=== PATIENT | female | born 1985 | race Caucasian/White ===

== ENCOUNTER 2017-09-20 06:37 | Inpatient (IN) | payer OTHER ==
[2017-09-20] MEDS ORDERED: TERBUTALINE SULFATE 1 MG/ML VIAL IV PRN (07:14)
[2017-09-20] MEDS ORDERED: MISOPROSTOL 200 MCG TAB PR PRN (07:14)
[2017-09-20] MEDS ORDERED: EPSOM SALT 454 GM TP PRN (07:14)
[2017-09-20] MEDS ORDERED: OLIVE OIL 118 ML BTL MISC PRN (07:14)
[2017-09-20] MEDS ORDERED: OXYTOCIN 20 UNIT in LR 1,000 ML IV PRN (07:14)
[2017-09-20] MEDS ORDERED: LR 1,000 ML IV PRN (07:14)
[2017-09-20] MEDS ORDERED: PHENYLEPHRINE HCL 100 MCG/ML SYR ONE (07:40)
[2017-09-20] MEDS ORDERED: BUPIVACAINE 0.25% 30 ML SDV ONE (07:40)
[2017-09-20] MEDS ORDERED: fentaNYL 100 MCG/2 ML INJ ONE (07:41)
[2017-09-20 07:50] LABS: PLATELET COUNT 234 10^3/uL (150-400)
--- NOTE | 2017-09-20 08:22 | PREANESOB ---
Obstetric Pre-Anesthesia Info - General Info Proposed Procedure: JESSENIA - Info Status: Full Term FHR Pattern: Reassuring - Labor Status Labor Epidural: Yes Anesthesia Allergies/Adverse Reactions: Allergy/AdvReac Type Severity Reaction Status Date / Time shellfish derived Allergy Hives Verified 09/20/17 07:13 she Allergy Uncoded 09/20/17 07:13 Home Medications: Medication Instructions Recorded Docusate Sodium [Colace 100 MG (*)] 100 mg PO BID PRN #0 cap 08/25/14 Hydrocodone/APAP 5/325 [[place] 1 - 2 tab PO Q4 PRN #10 tab 08/25/14 5/325 (*)] Ibuprofen [Motrin (*)] 600 mg PO Q6 PRN #30 tab 08/25/14 Visit Medications: Generic Name Dose Route Start Last Admin Trade Name Freq PRN Reason Stop Dose Admin Lactated Ringer's 1,000 mls @ 0 mls/hr 09/20/17 07:14 Lr IV 09/21/17 07:13 PRN PRN SEE PROTOCOL CONDITIONS Protocol Per Protocol Oxytocin 20 unit/ Lactated 1,002 mls @ 150 mls/hr 09/20/17 07:14 Ringer's IV PRN PRN Post- bleeding Ibuprofen 600 mg 09/20/17 07:14 Motrin PO 03/19/18 07:13 Q6HRS PRN post , inflammation Magnesium Sulfate 454 gm 09/20/17 07:14 Epsom Salt TP 03/19/18 07:13 Q1H PRN perineal discomfort Misoprostol 800 - 1,000 mcg 09/20/17 07:14 Cytotec [place] ONCE PRN Vaginal Atony/Bleeding [place] Oil 118 ml 09/20/17 07:14 Sweet Oil MISC 03/19/18 07:13 ONCE PRN perineal massage Terbutaline Sulfate 0.25 mg 09/20/17 07:14 Brethine IV 03/19/18 07:13 ONCE PRN Tachysystole Discontinued Medications Generic Name Dose Route Start Last Admin Trade Name Freq PRN Reason Stop Dose Admin Bupivacaine HCl Confirm 09/20/17 07:40 Sensorcaine 0.25% Sdv Administered 09/20/17 07:41 Dose 30 ml .ROUTE .STK-MED ONE Fentanyl Confirm 09/20/17 07:41 Sublimaze Administered 09/20/17 07:42 Dose 100 mcg .ROUTE .STK-MED ONE Phenylephrine HCl Confirm 09/20/17 07:40 Neosynephrine Administered 09/20/17 07:41 Dose 1,000 mcg .ROUTE .STK-MED ONE - Vital Signs Blood Pressure: 100/60 Heart Rate: 74 Height/Weight (Nursing): Height 165.1 cm Weight 90.265 kg - Focused Exam Neck exam: FROM Mallampati Score: Class 2 Mouth exam: normal dental/mouth exam Pulmonary: no respiratory distress Cardiovascular: regular rate and rhythym Labs: 09/20/17 07:40 - Plan Anesthetic Plan: JESSENIA Consent Signed and on Chart: Yes
--- NOTE | 2017-09-20 08:22 | POSTANESTH ---
Post Anesthetic Evaluation Cardiovascular Status: Normal, Stable Respiratory Status: Normal, Stable Level of Consciousness/Mental Status: Can Participate in Eval Pain Control: Adequate, Prn Tx Ordered Nausea/Vomiting Control: Adequate, Prn Tx Ordered Complications Possibly Related to Anesthesia: None Noted
[2017-09-20] MEDS ORDERED: NARCOTIC DRIP BAG-TOTAL ALL TYPES IV PRN (08:25)
[2017-09-20] MEDS ORDERED: LR 500 ML IV SCH (08:30)
[2017-09-20] MEDS ORDERED: FENT2MCG/ML&BUP0.1% 1 EA, fentaNYL 200 MCG, BUPIVACAINE 0.5% 20 ML in NS 100 ML IV SCH (08:30)
[2017-09-20] MEDS ORDERED: fentaNYL 2MCG/ML/BUP 0.1% RTU 100 ML EP SCH (08:30)
[2017-09-20] MEDS ORDERED: OLIVE OIL 118 ML BTL ONE (09:34)
[2017-09-20] MEDS ORDERED: LIDOCAINE 1% 300 MG/30 ML SDV ONE (09:34)
[2017-09-20] MEDS ORDERED: OXYTOCIN 10 UNIT/ML VIAL ONE (09:35)
[2017-09-20] MEDS ORDERED: AMMONIA AROMATIC 1 EACH AMP IH ONE (09:35)
[2017-09-20] MEDS ORDERED: TERBUTALINE SULFATE 1 MG/ML VIAL ONE (09:35)
[2017-09-20] MEDS ORDERED: MISOPROSTOL 200 MCG TAB ONE (09:35)
[2017-09-20] MEDS ORDERED: CALCIUM CARBONATE 500 MG CHEWABLE TAB PO PRN (10:40)
[2017-09-20] MEDS: IBUPROFEN 600 MG TAB PO PRN ×3 (12:02→23:48)
[2017-09-20] MEDS ORDERED: DOCUSATE SODIUM 100 MG CAP PO PRN (12:14)
[2017-09-20] MEDS ORDERED: MEASLES,MUMPS&RUBELLA VACC/PF 0.5 ML VIAL SC ONE (12:15)
[2017-09-20] MEDS: ACETAMINOPHEN 325 MG TAB PO PRN (20:08)
--- NOTE | 2017-09-20 20:11 | OBDEL ---
Info Type: Vaginal Presentation at Delivery: Vertex L&D Analgesia/Anesthesia Type: Epidural GBS+: No Intrapartum Medications: Generic Name Dose Route Start Last Admin Trade Name Freq PRN Reason Stop Dose Admin Calcium Carbonate 500 - 1,000 mg 09/20/17 10:40 09/20/17 12:01 Tums PO 03/19/18 10:39 500 mg Q2H PRN Administration INDIGESTION Ibuprofen 600 mg 09/20/17 07:14 09/20/17 18:14 Motrin PO 03/19/18 07:13 600 mg Q6HRS PRN Administration post , inflammation - Hospital Course Intrapartum: 09/20/17 20:08 SROM at 0400, SOOC 0545, great progress, JESSENIA with minimal pushing Indications for Delivery: Spontaneous Labor Vaginal Delivery - Delivery Provider Delivery Physician/CNM: Makenna Salguero - Labor and Delivery Onset of Contractions Date: 09/20/17 Onset of Contractions Time: 05:45 Onset of Contractions Type: Spontaneous Rupture of Membranes Date: 09/20/17 Rupture of Membranes Time: 04:00 Rupture of Membranes Type: Spontaneous Amniotic Fluid Color: Clear Dilation Complete Date: 09/20/17 Dilation Complete Time: 10:00 Placenta Delivery Date: 09/20/17 Placenta Delivery Time: 11:30 Total Hours of Labor: 5 Laceration: 1st Degree Repair: Other (Specify) (none needed) Vaginal Sponge Count Correct: Yes Vaginal Needle Count Correct: Yes Vaginal Sweep Performed: No EBL: 300 Delivery Events: None - Medications Labor Augmentation/Induction Methods Used: None [place] Data SOLO: 09/30/17 Gestational Age: 38 week(s) and 4 day(s) Jones Delivery Date: 09/20/17 Delivery Time: 10:59 Sex of : Female [place] Weight (gm): 1714.579 kg Score (1 Min): 8 Score (5 Min): 9 ICD10 Worksheet Patient Problems: Problems Problem Status Onset (spontaneous vaginal delivery) Acute
[2017-09-20 20:15] VITALS: BP 108/66; PULSE 91; RESP 18; TEMP 97.5; O2SAT 95
[2017-09-21] MEDS: ACETAMINOPHEN 325 MG TAB PO PRN ×2 (04:35→09:11)
[2017-09-21] MEDS: IBUPROFEN 600 MG TAB PO PRN ×3 (06:26→18:50)
--- NOTE | 2017-09-21 07:11 | GHP ---
[f rep st] HISTORY AND PHYSICAL DATE OF ADMISSION: 09/20/2017 LATE NOTE. Patient seen and evaluated at 8:30 a.m. on 09/20. This admission H and P is late. The patient was admitted and evaluated on the morning of 09/20/2017. HISTORY: Upon admission, the patient is a 32-year-old, G2, P1, female , at 38+ wks gest, who presents on the morning of 09/20 after spontaneous rupture of membranes at 0400, with spontaneous onset of contractions at 0545. Patient states contractions increasing in intensity and frequency, and upon arrival was requesting an epidural. That was placed shortly after admission, and the patient got good relief from the contraction pain. The patient was having clear amniotic fluid and her GBS culture was negative. Patient was allowed to discontinue spontaneous labor. care: The patient has been followed with [facility] since 7 weeks' gestation. Other than 1st trimester nausea, the patient has been relatively uncomplicated. The patient was having heartburn in the 3rd trimester and taking Tums. The patient had an upper respiratory infection at 30 weeks with a persistent cough and rib pain that persisted for weeks afterward. PAST MEDICAL HISTORY: Occasional migraine headaches related to TMJ. PAST SURGICAL HISTORY: Right salpingo-oophorectomy in 2008, in 2013 a laparoscopic cyst removal. PAST OBSTETRIC HISTORY: In August 2014, a viable female, named Jennifer, who delivered vaginally after a 10 hour labor at 37 weeks with an epidural. Baby was 7 pounds 5 ounces. ALLERGIES: The patient is allergic to shellfish, causing hives. Otherwise, no known drug allergies. MEDICATIONS: In , vitamins with DHA, Diclegis in the 1st trimester, as well as Prometrium in the 1st trimester. SOCIAL HISTORY: The patient is , lives with her Sophy. Patient is a nonsmoker. No alcohol or drug use. PHYSICAL EXAM: GENERAL: Upon admission, the patient is a well-developed, well- nourished female, comfortable now with an epidural. VITAL SIGNS: The patient is afebrile and normal vital signs. See nursing documentation for full details. ABDOMEN: heart tones show a category 1 tracing in the 130s, with good variability and accelerations. No decelerations noted. Contractions every 2-3 minutes. PELVIC: Initial cervical exam showed the patient was 4-5 cm dilated at -1 station. Clear leakage of fluid. EXTREMITIES: Nontender and only mild edema. ASSESSMENT: Intrauterine at 38+ weeks' gestation, with an estimated due date of 09/30, in spontaneous labor with spontaneous rupture of membranes. GBS negative. PLAN: Expect a vaginal delivery. Comfortable now with epidural. Add Pitocin if contractions space. /[id number]/MODL MTDD
[2017-09-21] MEDS ORDERED: MEASLES,MUMPS&RUBELLA VACC/PF 0.5 ML VIAL SC ONE (12:00)
--- NOTE | 2017-09-21 12:58 | OBGCSDC ---
General Delivery Information - General Info : 2 Para: 2 Abortions: 0 Type: Vaginal L&D Analgesia/Anesthesia Type: Epidural Admission Date: 09/20/17 Labs: Patient ABO/Rh O POSITIVE 09/20/17 07:40 Hct 41.9 % (38.0-47.0) 09/20/17 07:40 - Hospital Course Intrapartum: 09/20/17 20:08 SROM at 0400, SOOC 0545, great progress, JESSENIA with minimal pushing : 09/21/17 19:12 S) Pt doing well, reports min pain and bleeding. she is ambulating and voiding without difficulty. She is . She desires discharge home today. O) VSS, afebrile constitutional: WNWF, A&Ox3 HEENT: normocephalic, atraumatic, supple Heart: RRR, No murmur Chest: CTA-B Abdomen: Soft, nontender Uterus: Firm at U-2 Lochia: Minimal rubra Perineum: healing well Extremities: Trace edema, and negative Nancy's sign Neuro: Grossly normal A) 32-year-old S/P PPD#2 P) Discharge home today Continue Pelvic rest x6wks Discussed danger signs (infection, preeclampsia, depression, heavy bleeding, etc ) RTO in 4/6 weeks Vaginal - Delivery Provider Delivery Physician/CNM: Makenna Salguero - Diagnosis Labor: Spontaneous Rupture of Membranes Type: Spontaneous Amniotic Fluid Color: Clear Laceration: 1st Degree Repair: Other (Specify) (none needed) Delivery Events: None - Delivery EBL: 300 Data SOLO: 09/30/17 Gestational Age: 38 week(s) and 5 day(s) Jones Delivery Date: 09/20/17 Delivery Time: 10:59 Sex of Infant: Female [place] Weight (gm): 1714.579 kg Score (1 Min): 8 Score (5 Min): 9 Discharge Information - Discharge Information Prescriptions: Ibuprofen [Motrin (*)] 600 mg PO Q6HRS PRN #30 tab PRN Reason: post , inflammation Condition: Good Instruction/Follow Up: Four Weeks, Six Weeks
== END 2017-09-21 19:55 | disposition home or self-care (01) | DRG 775 ==
LOC: OBSVTOIN 06:37 → FLD 06:37 → FOB 14:36
PROVIDERS: ADMIT Advanced Practice Midwife; ATTEND Advanced Practice Midwife
PROC: 10E0XZZ Delivery of Products of Conception, External Approach (ICD-10-PCS; principal; 2017-09-20)
DX: O70.0 First degree perineal laceration during delivery (principal); Z37.0 Single live birth; Z3A.38 38 weeks gestation of pregnancy
CPT/HCPCS: J2370; J2590; J3010; J3105